=== PATIENT | female | born 1930 | race Caucasian/White ===

== ENCOUNTER 2016-04-28 11:32 | Emergency (ER) | payer MEDICARE, BC ==
--- NOTE | 2016-04-28 13:45 | CT ---
Exam: CT head without contrast COMPARISON: 01/07/2012 INDICATION: Weakness and headache. TECHNIQUE: CT examination of the head was obtained without contrast. 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 There are some excrescences which protrude along the inner table of the skull, as annotated on coronal reformations 12 of 38. This measure lesion measures up to 5.5 cm in lateral dimensions and 9.2 cm in anteroposterior dimensions. Although the above-described bone lesion does protrude inward, there is no significant mass effect on the underlying brain parenchyma. There is no acute intracranial hemorrhage. There is no abnormal intra or extra-axial fluid collection. 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 There is no edema, mass effect or midline shift. There is mild global atrophy. Ventricles are normal in size. 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 Overlying skin appears ulcerated. No acute intracranial abnormalities identified. Findings were discussed with Dr. Brennan at 1335 hours 04/28/2016.
[2016-04-28 14:09] LABS: ABSOLUTE NEUTROPHIL COUNT 4.1 K/mm3 (1.8-7.7); BASO % 0.5 % (0.2-1.0); EOS # 0.2 (0.0-0.5); EOS % 3.2 % (0.9-2.9); HEMATOCRIT 37.2 % (37.0-47.0); HEMOGLOBIN 12.2 gm/l (12.0-16.0); IMM NEUT% 0.4 % (0-1); LYMPH # 2.2 (1.0-4.8); LYMPH % 30.5 % (15-45); MEAN CELL VOLUME 99.7 fl (81.0-99.0); MEAN CORPUSCULAR HEMOGLOBIN 32.7 pg (27.0-31.0); MEAN CORPUSCULAR HGB CONC 32.8 g/dl (33.0-37.0); MEAN PLATELET VOLUME 9.5 fl (7.4-10.4); MONO # 0.7 (0.0-0.8); MONO % 9.6 % (4-12); NEUT % 55.8 % (43-75); PLATELET COUNT 284 K/mm3 (130-400); RED CELL DISTRIBUTION WIDTH 12.5 % (11.5-14.5)
[2016-04-28] MEDS ORDERED: SODIUM CHLORIDE 0.9% 1,000 ML ONE (14:28)
[2016-04-28 14:34] LABS: ALB/GLOB RATIO 1.1 (>1.0); ALBUMIN 3.7 gm/dL (3.5-5.7); CALCIUM 9.3 mg/dL (8.6-10.3)
--- NOTE | 2016-04-28 14:54 | RAD ---
CHEST-AP BEDSIDE HISTORY: Weakness. COMPARISONS: 11/20/2014. FINDINGS: A single view of the chest was performed demonstrating a low inspiratory volume. The heart size is stable from the appearance on prior exam. Increased density suggested within the medial left pulmonary base though the appearance is similar to that seen on prior examination. This may reflect chronic scarring or possibly bronchiectasis. No effusion or pneumothorax is visualized. The hilar and mediastinal structures are intact. IMPRESSION: 1. A low inspiratory volume. 2. Suggested asymmetric density within the medial left pulmonary base. The pulmonary infiltrate cannot be excluded, the appearance is similar to that seen on prior exam of 11/20/2014, and may reflect scarring or even bronchiectasis.
[2016-04-28] MEDS ORDERED: CEFTRIAXONE 1 GRAM DUPLEX 50 ML IV ONE (15:23)
[2016-04-28] MEDS ORDERED: OLANZAPINE 5 MG TABLET ONE (15:55)
== END 2016-04-28 16:24 | disposition home or self-care (01) ==
LOC: ED 11:32
DX: N39.0 Urinary tract infection, site not specified (principal); F03.90 Unspecified dementia, unspecified severity, without behavioral disturbance, psychotic disturbance, mood disturbance, and anxiety; I10 Essential (primary) hypertension
CPT/HCPCS: 85025; 80053; 71010; 70450; 99284; 96365; 93005; 99283; A9270; J7030; J0696